=== PATIENT | male | born 1990 | race Caucasian/White ===

== ENCOUNTER → 2019-05-28 07:43 | Outpatient (CLI) | payer BC, SELFPAY ==
[2019-05-28 07:32] VITALS: BMI 44.6
== END ==
PROVIDERS: PCP Family Medicine; Referring Provider Physician Assistant Surgical; Visit Provider Physician Assistant Surgical
DX: J20.9 Acute bronchitis, unspecified (principal)

== ENCOUNTER → 2019-05-28 07:56 | Outpatient (CLI) | payer BC, SELFPAY ==
[2019-05-28 07:32] VITALS: BMI 44.6
--- NOTE | 2019-05-28 07:56 | RAD_ITS ---
STUDY: X-RAY CHEST REASON FOR EXAM: Male, 28 years old. COUGH TECHNIQUE: PA and lateral views of the chest. COMPARISON: None. FINDINGS: The lungs are clear and expanded. There is no demonstrated pleural abnormality. Normal size heart. Normal mediastinum and adam. Normal visualized pulmonary arteries. Normal visualized aortic arch and descending thoracic aorta. Normal visualized thoracic spine. Normal visualized ribs, clavicles, and shoulders. There is no demonstrated abnormality of the visualized soft tissue structures of the upper abdomen. RAD/Chest PA and Lateral IMPRESSION: Normal x-ray examination of the chest. Electronically Signed: Sandoval Nuno, at 8:24 EST , Service support ,
== END ==
PROVIDERS: PCP Family Medicine; Referring Provider Physician Assistant Surgical; Visit Provider Physician Assistant Surgical
DX: J20.9 Acute bronchitis, unspecified (principal)
CPT/HCPCS: 71046

== ENCOUNTER 2020-07-21 11:30 | Outpatient (RCR) | payer BC, SELFPAY | END 2020-07-23 23:59 | LOC: NS 11:30 | PROVIDERS: PCP Family Medicine; Visit Provider Physician Assistant Surgical | DX: E66.3 Overweight (principal) | CPT/HCPCS: 97802; 97803 ==

== ENCOUNTER 2020-08-11 14:26 | Outpatient (RCR) | payer BC, SELFPAY | END 2020-08-22 23:59 | LOC: NS 14:26 | PROVIDERS: PCP Family Medicine; Visit Provider Physician Assistant Surgical | DX: Z71.3 Dietary counseling and surveillance (principal); E66.3 Overweight ==

== ENCOUNTER 2020-08-25 13:32 | Outpatient (RCR) | payer BC, SELFPAY | END 2020-09-22 23:59 | LOC: NS 13:32 | PROVIDERS: Visit Provider Physician Assistant Surgical | DX: Z71.3 Dietary counseling and surveillance (principal); E66.3 Overweight; Z68.42 Body mass index [BMI] 45.0-49.9, adult | CPT/HCPCS: 97803 ==

== ENCOUNTER 2020-10-14 08:30 | Outpatient (RCR) | payer BC, SELFPAY | END 2020-10-22 23:59 | LOC: NS 08:30 | PROVIDERS: Visit Provider Physician Assistant Surgical | DX: Z71.3 Dietary counseling and surveillance (principal); E66.3 Overweight; Z68.42 Body mass index [BMI] 45.0-49.9, adult | CPT/HCPCS: 97803 ==

== ENCOUNTER 2020-11-17 08:30 | Outpatient (RCR) | payer BC, SELFPAY | END 2020-11-22 23:59 | LOC: NS 08:30 | PROVIDERS: Visit Provider Physician Assistant Surgical | DX: Z71.3 Dietary counseling and surveillance (principal); E66.3 Overweight; Z68.42 Body mass index [BMI] 45.0-49.9, adult | CPT/HCPCS: 97803 ==

== ENCOUNTER 2020-12-30 16:21 | Outpatient (RCR) | payer BC, SELFPAY | END 2021-01-22 23:59 | LOC: NS 16:21 | PROVIDERS: Visit Provider Physician Assistant Surgical | DX: Z71.3 Dietary counseling and surveillance (principal); E66.3 Overweight; Z68.42 Body mass index [BMI] 45.0-49.9, adult | CPT/HCPCS: 97803 ==

== ENCOUNTER → 2021-01-30 | Outpatient (CLI) | payer BC, SELFPAY | END | disposition home or self-care (01) | PROVIDERS: Referring Provider Physician Assistant; Visit Provider Physician Assistant | DX: U07.1 COVID-19 (principal) | CPT/HCPCS: 87635; U0005; U0003 ==

== ENCOUNTER 2021-02-17 15:58 | Outpatient (RCR) | payer BC, SELFPAY | END 2021-02-22 23:59 | LOC: NS 15:58 | PROVIDERS: Visit Provider Physician Assistant Surgical | DX: Z71.3 Dietary counseling and surveillance (principal); E66.3 Overweight; Z68.42 Body mass index [BMI] 45.0-49.9, adult | CPT/HCPCS: 97803 ==

== ENCOUNTER 2021-03-11 08:20 | Outpatient (RCR) | payer BC, SELFPAY | END 2021-03-24 23:59 | LOC: NS 08:20 | PROVIDERS: Visit Provider Physician Assistant Surgical | DX: Z71.3 Dietary counseling and surveillance (principal); E66.3 Overweight; Z68.42 Body mass index [BMI] 45.0-49.9, adult | CPT/HCPCS: 97803 ==

== ENCOUNTER 2021-03-31 14:39 | Outpatient (RCR) | payer BC, SELFPAY | END 2021-04-24 23:59 | LOC: NS 14:39 | PROVIDERS: Visit Provider Physician Assistant Surgical | DX: Z71.3 Dietary counseling and surveillance (principal); E66.3 Overweight; Z68.42 Body mass index [BMI] 45.0-49.9, adult | CPT/HCPCS: 97803 ==

== ENCOUNTER 2021-05-20 14:56 | Outpatient (RCR) | payer BC, SELFPAY | END 2021-05-25 23:59 | LOC: NS 14:56 | PROVIDERS: Visit Provider Physician Assistant Surgical | DX: Z71.3 Dietary counseling and surveillance (principal); E66.3 Overweight | CPT/HCPCS: 97803 ==

== ENCOUNTER 2021-06-17 14:50 | Outpatient (RCR) | payer BC, SELFPAY | END 2021-06-22 23:59 | LOC: NS 14:50 | PROVIDERS: Referring Provider Physician Assistant Surgical; Visit Provider Physician Assistant Surgical | DX: Z71.3 Dietary counseling and surveillance (principal); E66.9 Obesity, unspecified; Z68.41 Body mass index [BMI] 40.0-44.9, adult | CPT/HCPCS: 97803 ==

== ENCOUNTER 2021-07-07 15:42 | Outpatient (RCR) | payer BC, SELFPAY | END 2021-07-23 23:59 | LOC: NS 15:42 | PROVIDERS: Referring Provider Physician Assistant Surgical; Visit Provider Physician Assistant Surgical | DX: Z71.3 Dietary counseling and surveillance (principal); E66.3 Overweight; Z68.41 Body mass index [BMI] 40.0-44.9, adult | CPT/HCPCS: 97803 ==

== ENCOUNTER 2021-07-28 15:18 | Outpatient (RCR) | payer BC, SELFPAY | END 2021-08-22 23:59 | LOC: NS 15:18 | PROVIDERS: Referring Provider Physician Assistant Surgical; Visit Provider Physician Assistant Surgical | DX: Z71.3 Dietary counseling and surveillance (principal); E66.9 Obesity, unspecified; Z68.41 Body mass index [BMI] 40.0-44.9, adult | CPT/HCPCS: 97803 ==

== ENCOUNTER 2021-10-21 15:30 | Outpatient (RCR) | payer BC, SELFPAY | END 2021-10-22 23:59 | LOC: NS 15:30 | PROVIDERS: Referring Provider Physician Assistant Surgical; Visit Provider Physician Assistant Surgical | DX: Z71.3 Dietary counseling and surveillance (principal); E66.3 Overweight; Z68.41 Body mass index [BMI] 40.0-44.9, adult | CPT/HCPCS: 97803 ==

== ENCOUNTER 2022-03-20 13:03 | Emergency (ER) | payer BC, SELFPAY ==
[2022-03-20 13:04] VITALS: BP 142/90; PULSE 99; RESP 15; TEMP 36.9; O2SAT 98; BMI 44.4
--- NOTE | 2022-03-20 14:37 | EDS_ITS ---
HPI History of Present Illness Chief Complaint: Eye Problem Informant: patient Onset/Context/Timing Location: Left Eye Onset: Today Context: Sudden Onset Timing: Continuous Worsened by: Lights Relieved by: Nothing Associated Symptoms Associated Symptoms - Eyes: Drainage (Watery), Foreign body sensation, Pain and Photophobia; Negative for Burning, Crusting, Eyelid swelling, Itching, Matting or Redness History of injury: Uncertain Visual correction: Glasses and Corrective contact lenses Narrative Narrative: Patient presents with left eye pain that began this morning when he woke up. Patient states he noted some pain in his left eye and some blurry vision. Patient states he was able to rinse his eye out and the pain improved. Patient states he still has some foreign body sensation when he closes his eyes. Patient states it is worse with certain weights. Patient admits to some watery drainage. Patient denies any loss of vision. Patient denies any trauma or injury. Patient does wear contact lenses. [facility] Medical History (Updated 03/20/22 @ 15:[address] Antoine Mast DO) SOB (shortness of breath) Home Medications NK 07/10/19 [History Last Taken Unknown] Allergy/AdvReac Type Severity Reaction Status Date / Time No Known Allergies Allergy Unverified 03/20/22 13:04 Surgical History (Updated 03/20/22 @ 14:[address] Antoine Mast DO) History of surgery on left wrist Social History Smoking Status: Current every day smoker tobacco type: e-cigarettes Smokeless tobacco user: chewing tobacco alcohol intake: current alcohol intake frequency: holidays/special occasions only Alcohol type: hard liquor ROS ROS ED Constitutional Constitutional ED: Denies chills or fever(s) Eyes Eyes: Reports blurry vision; Denies diplopia ENT ENT ED: Denies rhinorrhea or sore throat Cardiovascular Cardiovascular: Denies chest pain or palpitations Respiratory/Chest Respiratory/Chest: Denies cough or dyspnea Gastrointestinal Gastrointestinal: Denies nausea or vomiting Genitourinary Genitourinary ED: Denies dysuria or hematuria Musculoskeletal Musculoskeletal: Denies back pain or neck pain Integumentary Denies abscess or rash Neurologic Neurologic: Reports headache(s); Denies weakness Allergic/Immunologic Allergic/Immunologic ED: Denies mouth swelling or urticaria EXAM Physical Exam Const Vital Signs: 03/20/22 13:04 Temperature 98.4 F Temperature Source Temporal Pulse Rate 99 Respiratory Rate 15 Blood Pressure 142/90 H Blood Pressure Mean 107 Pulse Ox 98 Oxygen Delivery Method Room Air Positive well nourished, well developed and obese General Appearance ED: well developed and NAD Nutritional Appearance: obese HEENT atraumatic Eyes Eyes Narrative: Pupils are equal, round, and reactive to light bilaterally. Extraocular muscles are intact. Conjunctiva is injected on the left. There are no foreign bodies visualized. Anterior chamber is clear. There is no discharge or drainage. Neck supple and no JVD Neuro oriented x3, CN's II-XII intact bilaterally, moves all extremities and no sensory deficits noted Sensorium / Orientation: alert Motor Exam: strength 5/5 throughout MDM MDM MDM Narrative Medical decision making narrative: Tetracaine and fluorescein dye was applied. There is a small corneal abrasion of the central cornea. There are no foreign bodies noted. Anterior chamber was clear. There is no cell or flare. Patient was given erythromycin ophthalmic ointment. Patient was instructed to follow-up with his primary care physician in 2 days for reevaluation. Patient understood and was agreeable with the plan. All questions were answered. Discharge Plan Triage Chief Complaint: Eye Problem ED Provider: Antoine Mast Dx/Rx/DC Orders Clinical Impression: Corneal abrasion Instructions: ED Corneal Abrasion Prescriptions: No Action NK Primary Care Provider: Care Physician,No Primary Referrals: Anila Langston DO [Med Staff - Active Staff] - 2 Days Saeid Mckinley MD [Med Staff - Active Staff] - 2 Days Care Physician,No Primary [Primary Care Provider] - Disposition Disposition: Home, Self Care
[2022-03-20] MEDS: Tetracaine 0.5% Ophthalmic Bottle OPHTHALMIC (15:52)
[2022-03-20] MEDS: Fluorescein 1 MG STRIP 1 STRIP OPHTHALMIC (15:52)
[2022-03-20] MEDS: Erythromycin Base 1 OPTH.TUBE OPHTHALMIC (15:56)
== END 2022-03-20 15:57 | disposition home or self-care (01) ==
PROVIDERS: Emergency Provider Emergency Medicine; Visit Provider Emergency Medicine
DX: S05.02XA Injury of conjunctiva and corneal abrasion without foreign body, left eye, initial encounter (principal); F17.290 Nicotine dependence, other tobacco product, uncomplicated; H53.149 Visual discomfort, unspecified; X58.XXXA Exposure to other specified factors, initial encounter
CPT/HCPCS: 99283

== ENCOUNTER → 2023-07-29 | Outpatient (CLI) | payer OTHER, SELFPAY | END | disposition home or self-care (01) | PROVIDERS: Referring Provider Physician Assistant Surgical; Visit Provider Physician Assistant Surgical | DX: Z11.3 Encounter for screening for infections with a predominantly sexual mode of transmission (principal) | CPT/HCPCS: 87491; 87591 ==